=== PATIENT | female | born 1995 | race Two or more races ===

== ENCOUNTER 2017-03-01 13:11 | Inpatient (IN) | payer OTHER ==
[2017-03-01] MEDS ORDERED: ACETYLCYSTEINE IVPB ONE ×3 (13:30→19:30)
[2017-03-01] MEDS ORDERED: D5W IVPB ONE ×3 (13:30→19:30)
[2017-03-01 13:33] LABS: Hematocrit 42 % (35-47); Hemoglobin 14.3 g/dl (12.0-16.0); Mean Corpuscular HGB Conc 34 g/dl (31-36); Mean Corpuscular Hemoglobin 30 pg (27-31); Mean Corpuscular Volume 88 fL (80-97); Mean Platelet Volume 8 um3 (7.4-10.4); Red Blood Count 4.72 10^6/ul (4.0-5.4); Red Cell Distribution Width 13 % (10.5-15); White Blood Count 5.4 10^3/ul (3.5-10.8)
[2017-03-01 13:44] LABS: ALT 11 U/L (7-52); AST 24 U/L (13-39); Albumin 4.9 g/dL (3.2-5.2); Alkaline Phosphatase 49 U/L (34-104); Anion Gap 9 mmol/L (2-11); BUN/Creatinine Ratio 13.8 (8-20); Blood Urea Nitrogen 13 mg/dL (6-24); CO2 Carbon Dioxide 24 mmol/L (22-32); Calcium 9.7 mg/dL (8.6-10.3); Chloride 101 mmol/L (101-111); EGFR African American 97.6 (>60); EGFR Non-African American 75.9 (>60); Globulin 3.3 g/dL (2-4); Glucose 86 mg/dL (70-100); Potassium 3.3 mmol/L (3.5-5.0); Sodium 134 mmol/L (133-145); Total Protein 8.2 g/dL (6.4-8.9)
[2017-03-01 14:05] LABS: Alcohol < 10 mg/dL (<10); Salicylate < 2.50 mg/dL (<30)
[2017-03-01 14:10] LABS: Acetaminophen 167 mcg/mL
[2017-03-01 16:05] LABS: Benzodiazepine Urine Screen None Detected (None Detect)
--- NOTE | 2017-03-01 16:22 | ED ---
Santhosh Nicholson Nikita, scribed for Hussain Mccurdy MD on 03/01/17 at 1412 . Substance Abuse/Use - HPI Summary HPI Summary: This patient is a 21 year old F BIBA to ED with a chief complaint of OD on Tylenol since 0700. Pt told her friend (who called the police) that she took 48 pills of 500mg of Tylenol intentionally. EMS found her with two empty bottles and 1 unopened bottle of Tylenol. The pt rates the pain 0/10 in severity. Symptoms aggravated by nothing. Symptoms alleviated by nothing. Patient reports she caused pain for her family and friends who distanced themselves from her because of it. She reports that she had a bad situation overall last semester . Per EMS, pt broke up with her boyfriend about 2-3 months ago. She wants to get back at her boyfriend. Per the nurse, she caused self-harm on her wrists. - History Of Current Complaint Chief Complaint: EDOverdose Stated Complaint: 941 Time Seen by Provider: 03/01/17 13:14 Hx Obtained From: Patient Onset/Duration of Drug/ETOH Abuse: Hours - 0700 Ingestion History: Type/Name Of Drug - Tylenol, Amount Ingested - 48 pills 500 mg, Approximate Time Of Ingestion - 07 Overdose Characteristics: Oral Timing Of Abuse: Binge Use Aggravating Factor(s): Nothing Alleviating Factor(s): Nothing Associated Signs And Symptoms: Other: - Patient reports she caused pain for her family and friends who distanced themselves from her because of it. She reports that she had a bad situation overall last semester. Per the nurse, she caused self-harm on her wrists. Related Hx: Suicidal: Prior Attempt(s) - Self-harm at wrists - Allergies/Home Medications Allergies/Adverse Reactions: Allergies Allergy/AdvReac Type Severity Reaction Status Date / Time No Known Drug Allergy Allergy Unknown Verified 03/01/17 13:25 Reaction Details PMH/Surg Hx/FS Hx/Imm Hx Endocrine/Hematology History: Denies: Hx Diabetes Cardiovascular History: Denies: Hx Coronary Artery Disease, Hx Hypertension Infectious Disease History: No Infectious Disease History: Denies: Traveled Outside the [place] in Last 30 Days - Family History Known Family History: Negative: Cardiac Disease, Hypertension, Diabetes - Social History Occupation: Student Alcohol Use: None Hx Substance Use: No Hx Tobacco Use: No Review of Systems Negative: Fever Positive: Other - Substance abuse. Patient reports she caused pain for her family and friends who distanced themselves from her because of it. She reports that she had a bad situation overall last semester. Per the nurse, she caused self-harm on her wrists. All Other Systems Reviewed And Are Negative: Yes Physical Exam Triage Information Reviewed: Yes Vital Signs On Initial Exam: Initial Vitals Temp Pulse Resp Pulse Ox 98.3 F 127 20 100 03/01/17 13:11 03/01/17 13:11 03/01/17 13:11 03/01/17 13:11 Vital Signs Reviewed: Yes Appearance: Positive: Well-Appearing, No Pain Distress Skin: Positive: Warm, Skin Color Reflects Adequate Perfusion, Dry Head/Face: Positive: Normal Head/Face Inspection Eyes: Positive: Normal ENT: Positive: Normal ENT inspection Neck: Positive: Supple, Nontender Respiratory/Lung Sounds: Positive: Clear to Auscultation, Breath Sounds Present Cardiovascular: Positive: RRR Abdomen Description: Positive: Nontender, Soft Bowel Sounds: Positive: Present Musculoskeletal: Positive: Normal Neurological: Positive: Normal, Sensory/Motor Intact, Alert, Oriented to Person Place, Time, CN Intact II-III Psychiatric: Positive: Affect/Mood Appropriate Diagnostics - Vital Signs Vital Signs Temp Pulse Resp BP Pulse Ox 03/01/17 13:14 98.3 F 124 18 135/96 98 03/01/17 13:11 98.3 F 127 20 100 - Laboratory Lab Results: Lab Results 03/01/17 03/01/17 03/01/17 Range/Units 13:10 13:10 13:10 WBC 5.4 (3.5-10.8) 10^3/ul RBC 4.72 (4.0-5.4) 10^6/ul Hgb 14.3 (12.0-16.0) g/dl Hct 42 (35-47) % MCV 88 (80-97) fL MCH 30 (27-31) pg MCHC 34 (31-36) g/dl RDW 13 (10.5-15) % Plt Count 229 (150-450) 10^3/ul MPV 8 (7.4-10.4) um3 Neut % (Auto) 58.0 (38-83) % Lymph % (Auto) 34.0 (25-47) % [place] % (Auto) 6.7 (1-9) % Eos % (Auto) 0.5 (0-6) % Baso % (Auto) 0.8 (0-2) % Absolute Neuts (auto) 3.1 (1.5-7.7) 10^3/ul Absolute Lymphs (auto) 1.8 (1.0-4.8) 10^3/ul Absolute Monos (auto) 0.4 (0-0.8) 10^3/ul Absolute Eos (auto) 0 (0-0.6) 10^3/ul Absolute Basos (auto) 0 (0-0.2) 10^3/ul Absolute Nucleated RBC 0 10^3/ul Nucleated RBC % 0 Sodium 134 (133-145) mmol/L Potassium 3.3 L (3.5-5.0) mmol/L Chloride 101 (101-111) mmol/L Carbon Dioxide 24 (22-32) mmol/L Anion Gap 9 (2-11) mmol/L BUN 13 (6-24) mg/dL Creatinine 0.94 (0.51-0.95) mg/dL Est GFR ( Amer) 97.6 (>60) Est GFR (Non-Af Amer) 75.9 (>60) BUN/Creatinine Ratio 13.8 (8-20) Glucose 86 (70-100) mg/dL Lactic Acid 1.9 (0.5-2.0) mmol/L Calcium 9.7 (8.6-10.3) mg/dL Total Bilirubin 0.70 (0.2-1.0) mg/dL AST 24 (13-39) U/L ALT 11 (7-52) U/L Alkaline Phosphatase 49 (34-104) U/L Total Protein 8.2 (6.4-8.9) g/dL Albumin 4.9 (3.2-5.2) g/dL Globulin 3.3 (2-4) g/dL Albumin/Globulin Ratio 1.5 (1-3) Beta HCG, Quant < 0.60 mIU/mL Salicylates < 2.50 (<30) mg/dL Acetaminophen 167 H* mcg/mL Serum Alcohol < 10 (<10) mg/dL Result Diagrams: 03/01/17 13:10 03/01/17 13:10 Lab Statement: Any lab studies that have been ordered have been reviewed, and results considered in the medical decision making process. - EKG 1311 Cardiac Rate: Tachycardia - 126 bpm EKG Rhythm: Sinus Rhythm ST Segment: Non-Specific - Non-specific changes Course/Dx - Course Course Of Treatment: Ms. Bourne was brougth in having told a friend that she took an OD of medicine. The friend called the police and she was brought in. She gave varying accounts of when she took th medicine (she told me 0700) but was very consistent on what. She reported taking 48 tabs of 500mgs aceetaminophen and 25mgs diphenhydramine. This is a toxic dose of both and she was given acetadose IV and monitored. He tylenol level was 1676 which is treatable unless she took the medicine immediately before the police were called. She is admitted to the ICU. - Diagnoses Provider Diagnoses: Overdose by acetaminophen, Overdose or poisoning by antihistamine or antiemetic drug - Physician Notifications Discussed Care Of Patient With: Shanae Love Time Discussed With Above Provider: 14:30 Instructed by Provider To: Other - Consulted with Dr. Love (hospitalist) who agrees to admit pt. - Critical Care Time Critical Care Time: 30-74 min Discharge - Discharge Plan Condition: Stable Disposition: ADMITTED TO [facility] The documentation as recorded by the Santhosh elliott Nikita accurately reflects the service I personally performed and the decisions made by me, Hussain Mccurdy MD.
[2017-03-01 16:28] LABS: Urine Bacteria Absent (Absent); Urine Bilirubin Negative (Negative); Urine Glucose Negative (Negative); Urine Nitrite Negative (Negative)
[2017-03-01] MEDS: Potassium Chlor TAB* 20 MEQ TAB.ER PO ONE ×2 (17:28→17:32)
[2017-03-01] MEDS: NS 0.9% 1000 ML* 1,000 ML IV SCH ×2 (17:28→17:32)
[2017-03-01] MEDS: LORazepam INJ* 2 MG/ML 1 ML VIAL IV PUSH PRN (19:33)
--- NOTE | 2017-03-01 19:34 | HP ---
HISTORY AND PHYSICAL: DATE OF ADMISSION: 03/01/17 PRIMARY CARE PROVIDER: Unknown. ATTENDING PHYSICIAN WHILE IN THE HOSPITAL: Dr. Schaeffer * (Report dictated by Jagjit Beach NP) CHIEF COMPLAINT: 1. Suicidal ideation. 2. Overdose. HISTORY OF PRESENT ILLNESS: Ms. Bourne is a 21-year-old female patient presumably healthy. There is a question if she has a psychiatric issue. She does state she has been cutting for some time and she is really not forthright with her history. She does state that her boyfriend broke up she told me 2 weeks ago and she told the paramedics 2 months ago. She does state that they broke up and since then has been feeling very depressed, very sad. She has been trying to think the ways to hurt him and she felt that her taking her own life would harm him. So today, she took 2 bottles, each bottle having 24 pills of Tylenol PM 500 mg per tablet of Tylenol, 25 mg per tablet of Benadryl. She took both of these today at around 8:30 or 9 o'clock in the morning and presented to the emergency department after [facility] was contacted. She again did admit to having self-harm in the past. She was evaluated in the ED and Acetadote was started and Poison Control was contacted and her Tylenol level was noted to be at 167. Because of this, the hospitalist service was asked to evaluate for admission. U-tox is pending. PAST MEDICAL HISTORY: Denied. PAST SURGICAL HISTORY: Denied. MEDICATIONS: The home meds were denied. ALLERGIES TO MEDICATIONS: No known drug allergies. FAMILY HISTORY: Father had cancer. Mother's history is reviewed, it sounds like she is healthy. SOCIAL HISTORY: She does not smoke. She drinks occasionally. She does not appoint a surrogate decision maker at this point. REVIEW OF SYSTEMS: There is no documented fever. Denied any significant weight change. There was no double vision. There is no ear discharge. No rhinorrhea, no sore throat. No thyroid enlargement. Denied having any chest pain. There is no orthopnea. No nocturnal dyspnea. There was no abdominal pain. No nausea, no vomiting, no dysuria, no frequency. No seizure. There is no loss of consciousness, no pruritus, and no skin ulcerations. Review of 14 systems completed, all others negative. PHYSICAL EXAMINATION GENERAL: At this time, Ms. Bourne is a 21-year-old female patient. She appears to be well nourished, well developed, does not appear to be in acute distress. VITAL SIGNS: Blood pressure 128/87, pulse 123, respirations 21, O2 sat 100%, and her temperature was 98.3. HEENT: Head is atraumatic and normocephalic. Eyes: EOMs are intact. Sclerae are anicteric and not pale. Throat: Oral mucosa appears to be moist. No oropharyngeal erythema. NECK: Supple. LUNGS: Clear to auscultation bilaterally. No wheezes, rales, or rhonchi. HEART: Sounds S1 and S2. She is tachycardic. ABDOMEN: Soft, flat, and nontender. Bowel sounds are present. EXTREMITIES: Pulses were 2+ throughout. She is able to move all 4 extremities with 5/5 strength. NEUROLOGIC: She is drowsy. She is awake. She is alert to place, time, and self. Music Video Producer equal. Tongue midline. No gross focal deficits. Pupils were dilated. SKIN: Intact. DIAGNOSTIC STUDIES/LAB DATA: The labs revealed a WBC of 5.4, RBC of 4.7, hemoglobin of 14.2, hematocrit of 42, platelet count of 229. Sodium is 134, potassium 3.3, chloride of 101, bicarb 24, BUN 13, creatinine 0.94, glucose 86. Lactate 1.9. Calcium 9.7. Total bili 0.7, AST 24, ALT 11, alk phos 49. Albumin 4.9. Beta-hCG was less than 0.6. Salicylates were negative. Serum alcohol was negative. Tylenol level was 167. She did have an EKG obtained today that showed sinus tachycardia, QTC was 388, no ST elevations or T-wave inversions were noted. Old medical records were reviewed. ASSESSMENT AND PLAN: Ms. Bourne is a 21-year-old female patient coming in to the ER today with suicidal ideation, now with intentional overdose in the form of Tylenol and Benadryl. We are asked to evaluate for admission. She will be admitted under inpatient status for: 1. Tylenol overdose and suicidal ideation. At this point, we touch base with Poison Control. We will plan to check her levels again 2 hours prior to the finish of her last acetylcysteine bag at the 14-hour vanessa, which would be right around 8 o'clock in the morning, we will check her CMP, INR and Tylenol level. If the Tylenol does remain elevated, they did recommend continuing her acetylcysteine 16- hour bag again. I did place a psychiatric consult as well as she is suicidal, we will put her on suicide precautions and we will follow her levels closely. 2. DVT prophylaxis. She will be placed on SCDs for time being. 3. Fluids, electrolytes, and nutrition: She can have a regular diet. 4. Code status. Full code. TIME SPENT: On admission 60 minutes, greater than half of the time spent face- to- face with the patient obtaining my history and physical, the other half time was spent going over the plan of care with the patient and implementing plan of care. I did discuss the plan of care with my attending, Dr. Schaeffer, she is in agreement. JAGJIT BEACH, RYAN [id number]/CPS #: [id number] KHADAR
[2017-03-02] MEDS: NS 0.9% 1000 ML* 1,000 ML IV SCH ×2 (00:04→06:46)
--- NOTE | 2017-03-02 09:48 | PN ---
Progress Note - Progress Note Date of Service: 03/02/17 Note: CRITICAL CARE MEDICINE Date: 03/02/17 Time: 950 SUBJECTIVE: Patient seen and examined. PHYSICAL EXAM: not wanting to converse much Vital Signs: Reviewed. Neurologic: awake, mild lethagry; nonfocal HEENT: pupils equal. Sclera anicteric. Trachea midline. Cardiovascular: S1 S2 Respiratory: clear Abdomen: Soft, nt. No r/g/r. Extremities: Warm. LABS: Reviewed. IMAGING: Reviewed. MEDICATIONS: Reviewed. ASSESSMENT: 21 F Intentional acetaminophen + benadryl overdose Suicidal attempt Major depression PLAN: improving. adequate clearance. on NAC but given apap level of 43 would continue another 16h course of NAC to error on safe side labs otherwise mostly ok, other then touch of acid and low K. adjust fluids to LR and avoid hyperCl. Po intake encouraged Still drowsy post benadryl and depression affects evident. F/u for any bladder complaints due to urinary retention as could require straight cath if it becomes a burden. can transfer to floor with 1:1 with psych eval and consider pysch inpt needs for tomorrow with expected medical clearance then. Holding her klonipin and effexor until tomorrow or per psych. Disposition: medical and likely pysch needs tomorrow Code Status: Full Critical Care Time: 25min Krista Lan DO
[2017-03-02 09:55] LABS: Hematocrit 37 % (35-47); Hemoglobin 12.5 g/dl (12.0-16.0); Mean Corpuscular HGB Conc 33 g/dl (31-36); Mean Corpuscular Hemoglobin 30 pg (27-31); Mean Corpuscular Volume 89 fL (80-97); Mean Platelet Volume 8 um3 (7.4-10.4); Red Cell Distribution Width 13 % (10.5-15); White Blood Count 7.3 10^3/ul (3.5-10.8)
[2017-03-02 10:07] LABS: Albumin 3.3 g/dL (3.2-5.2); BUN/Creatinine Ratio 4.1 (8-20); Calcium 8.1 mg/dL (8.6-10.3); EGFR African American 130.7 (>60); EGFR Non-African American 101.6 (>60); Globulin 2.5 g/dL (2-4); Potassium 3.4 mmol/L (3.5-5.0); Total Bilirubin 0.6 mg/dL (0.2-1.0); Total Protein 5.8 g/dL (6.4-8.9)
[2017-03-02] MEDS ORDERED: D5W IVPB ONE (12:00)
[2017-03-02] MEDS ORDERED: ACETYLCYSTEINE IVPB ONE (12:00)
[2017-03-03 02:22] LABS: Acetaminophen < 15 mcg/mL
[2017-03-03 02:23] LABS: ALT 7 U/L (7-52); AST 14 U/L (13-39); Albumin 3.1 g/dL (3.2-5.2); Alkaline Phosphatase 29 U/L (34-104); Anion Gap 4 mmol/L (2-11); BUN/Creatinine Ratio 2.7 (8-20); Blood Urea Nitrogen 2 mg/dL (6-24); CO2 Carbon Dioxide 21 mmol/L (22-32); Calcium 8.3 mg/dL (8.6-10.3); Chloride 111 mmol/L (101-111); EGFR African American 130.7 (>60); EGFR Non-African American 101.6 (>60); Globulin 2.2 g/dL (2-4); Glucose 80 mg/dL (70-100); Indirect Bilirubin 0.4 mg/dL (0.3-1.0); Magnesium 1.7 mg/dL (1.9-2.7); Potassium 3.7 mmol/L (3.5-5.0); Sodium 136 mmol/L (133-145); Total Protein 5.3 g/dL (6.4-8.9)
--- NOTE | 2017-03-03 13:57 | PN ---
Subjective Date of Service: 03/03/17 Interval History: Ms. Bourne feels okay this morning, but is tearful. She denies more thoughts of SI and says she is looking for reasons to "go on" like her parents and her cats. She denies headache, blurry vision, nausea, vomiting, diarrhea, or trouble urinating. Family History: Unchanged from Admission Social History: Unchanged from Admission Past Medical History: Unchanged from Admission Objective Active Medications: Potassium Chloride 20 meq/ (Lactated Ringer's) 1,010 mls @ 101 mls/hr IVPB Q10H RIGO Stop: 03/03/17 16:59 Last Admin: 03/03/17 09:12 Dose: 101 mls/hr Lorazepam (Ativan Inj*) 1 mg IV PUSH Q6H PRN PRN Reason: ANXIETY Last Admin: 03/01/17 19:33 Dose: 1 mg Vital Signs 03/02/17 03/02/17 03/02/17 14:00 15:00 16:00 Temperature Pulse Rate 95 85 77 Respiratory 18 22 12 Rate Blood Pressure 117/75 117/85 134/95 (mmHg) O2 Sat by Pulse 95 97 97 Oximetry 03/02/17 03/02/17 03/02/17 17:00 18:00 19:00 Temperature 99.9 F Pulse Rate 89 81 88 Respiratory 26 15 17 Rate Blood Pressure 131/90 121/89 (mmHg) O2 Sat by Pulse 97 97 97 Oximetry 03/02/17 03/02/17 03/02/17 20:00 20:15 21:00 Temperature Pulse Rate 79 73 Respiratory 20 15 22 Rate Blood Pressure 125/82 (mmHg) O2 Sat by Pulse 98 96 Oximetry 03/02/17 03/02/17 03/02/17 22:00 23:00 23:19 Temperature Pulse Rate 72 85 72 Respiratory 17 20 17 Rate Blood Pressure (mmHg) O2 Sat by Pulse 96 97 96 Oximetry 03/03/17 03/03/17 03/03/17 00:00 01:00 02:00 Temperature 99.4 F Pulse Rate 73 79 75 Respiratory 17 17 18 Rate Blood Pressure (mmHg) O2 Sat by Pulse 96 97 97 Oximetry 03/03/17 03/03/17 03/03/17 03:00 03:53 03:54 Temperature 99.9 F Pulse Rate 69 68 Respiratory 18 22 Rate Blood Pressure 122/82 (mmHg) O2 Sat by Pulse 96 97 Oximetry 03/03/17 03/03/17 03/03/17 04:00 05:00 06:02 Temperature 98.4 F Pulse Rate 74 78 78 Respiratory 22 21 14 Rate Blood Pressure 131/76 (mmHg) O2 Sat by Pulse 97 97 100 Oximetry 03/03/17 03/03/17 03/03/17 07:26 08:00 11:28 Temperature 99.1 F 98.5 F Pulse Rate 81 96 Respiratory 18 18 18 Rate Blood Pressure 131/74 119/73 (mmHg) O2 Sat by Pulse 99 99 Oximetry Oxygen Devices in Use Now: None Appearance: resting in bed, no distress, thin, tearful Eyes: No Scleral Icterus, PERRLA Ears/Nose/Mouth/Throat: NL Teeth, Lips, Gums, Clear Oropharnyx Neck: NL Appearance and Movements; NL JVP, Trachea Midline Respiratory: Symmetrical Chest Expansion and Respiratory Effort, Clear to Auscultation Cardiovascular: NL Sounds; No Murmurs; No JVD, RRR Abdominal: NL Sounds; No Tenderness; No Distention, No Hepatosplenomegaly Lymphatic: No Cervical Adenopathy, No Axillary Adenopathy Extremities: No Edema Skin: No Rash or Ulcers Neurological: Alert and Oriented x 3 Result Diagrams: 03/02/17 09:05 03/03/17 01:55 Additional Lab and Data: Lab Results 03/01/17 03/01/17 03/01/17 Range/Units 13:10 13:10 13:10 WBC 5.4 (3.5-10.8) 10^3/ul RBC 4.72 (4.0-5.4) 10^6/ul Hgb 14.3 (12.0-16.0) g/dl Hct 42 (35-47) % MCV 88 (80-97) fL MCH 30 (27-31) pg MCHC 34 (31-36) g/dl RDW 13 (10.5-15) % Plt Count 229 (150-450) 10^3/ul MPV 8 (7.4-10.4) um3 Neut % (Auto) 58.0 (38-83) % Lymph % (Auto) 34.0 (25-47) % [place] % (Auto) 6.7 (1-9) % Eos % (Auto) 0.5 (0-6) % Baso % (Auto) 0.8 (0-2) % Absolute Neuts (auto) 3.1 (1.5-7.7) 10^3/ul Absolute Lymphs (auto) 1.8 (1.0-4.8) 10^3/ul Absolute Monos (auto) 0.4 (0-0.8) 10^3/ul Absolute Eos (auto) 0 (0-0.6) 10^3/ul Absolute Basos (auto) 0 (0-0.2) 10^3/ul Absolute Nucleated RBC 0 10^3/ul Nucleated RBC % 0 Sodium 134 (133-145) mmol/L Potassium 3.3 L (3.5-5.0) mmol/L Chloride 101 (101-111) mmol/L Carbon Dioxide 24 (22-32) mmol/L Anion Gap 9 (2-11) mmol/L BUN 13 (6-24) mg/dL Creatinine 0.94 (0.51-0.95) mg/dL Est GFR ( Amer) 97.6 (>60) Est GFR (Non-Af Amer) 75.9 (>60) BUN/Creatinine Ratio 13.8 (8-20) Glucose 86 (70-100) mg/dL Lactic Acid 1.9 (0.5-2.0) mmol/L Calcium 9.7 (8.6-10.3) mg/dL Total Bilirubin 0.70 (0.2-1.0) mg/dL AST 24 (13-39) U/L ALT 11 (7-52) U/L Alkaline Phosphatase 49 (34-104) U/L Total Protein 8.2 (6.4-8.9) g/dL Albumin 4.9 (3.2-5.2) g/dL Globulin 3.3 (2-4) g/dL Albumin/Globulin Ratio 1.5 (1-3) Beta HCG, Quant < 0.60 mIU/mL Salicylates < 2.50 (<30) mg/dL Acetaminophen 167 H* mcg/mL Serum Alcohol < 10 (<10) mg/dL Microbiology and Other Data: Microbiology 03/01/17 14:40 Urine Culture - Final Urine 03/01/17 16:00 Nasal Screen MRSA (PCR)(IGNACIA) - Final Nasal Mrsa Negative Assess/Plan/Problems-Billing Assessment: 1. Intentional Acetaminophen Overdose Now approximately 48 hours after event; acetaminophen level now undetectable. She did receive N-acetylcysteine for approximately 24 hours. No evidence of liver damage at this time, but does have a mildly elevated INR. Awaiting Psych consult for disposition recommendations; may benefit from short term psych inpatient. 2. Intentional Diphenhydramine Overdose Monitor for anticholinergic side effects. 3. Major Depressive Disorder recently exacerbated by a break up. She does attend [facility] in [place] and expresses interest in continuing the program. Holding anti-depressants until evaluated by Psychiatry.
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
[2017-03-04] MEDS: LORazepam INJ* 2 MG/ML 1 ML VIAL IV PUSH PRN ×2 (03:36→13:07)
[2017-03-04 06:33] LABS: Albumin 3.3 g/dL (3.2-5.2); BUN/Creatinine Ratio 7.5 (8-20); Calcium 8.5 mg/dL (8.6-10.3); EGFR African American 144.3 (>60); EGFR Non-African American 112.2 (>60); Globulin 2.4 g/dL (2-4); Potassium 3.7 mmol/L (3.5-5.0); Total Bilirubin 0.2 mg/dL (0.2-1.0); Total Protein 5.7 g/dL (6.4-8.9)
[2017-03-04 08:42] VITALS: BP 121/79
--- NOTE | 2017-03-04 13:34 | CONSULT ---
Identification - Patient Identification Reason for Psychiatric Consultation: Suicidal Ideation -: Patient is a 21 year old, F admitted on 03/01/17. - MHU Identification Employment Status: Student Hx Psychiatric Hospitalization: Yes History - Objective HPI: The patient remains depressed and tearful, although she denies SI and expresses a desire to be discharged from the hospital so that she can return to [place] with her family, agreeing to resume partial hospitalization through the [facility] in [place], [place]. Her father, Tony Bourne is supportive of her release, stating that the family is rallying support to provide Esther with more- or-less 24 hour supervision in the home setting. I was able to gather further collateral information from the patient's primary therapist, Cynthia Dugan [phone]), who has been working with her at [facility] since her discharge from inpatient psychiatric treatment at [facility] in mid-January of this year. She describes the patient as highly impulsive and that this trip to [place] to visit friends was considered a "test run" to see if she could handle a lower level of supervision in the community. Given the severity of Esther's overdose, and the fact that partial hospitalization is only a 5day/week program, Ms. Dugan expresses her preference that the patient receive inpatient stabilization on our [facility] prior to returning to their care. Esther and her father are later notified of this, and, although disappointed, accept the situation for what it is and do not overly protest a BSU admission. Lab Results: Laboratory Tests 03/01/17 03/01/17 03/02/17 14:40 14:40 09:05 WBC RBC Hgb Hct MCV MCH MCHC RDW Plt Count MPV Neut % (Auto) Lymph % (Auto) Rogers % (Auto) Eos % (Auto) Baso % (Auto) Absolute Neuts (auto) Absolute Lymphs (auto) Absolute Monos (auto) Absolute Eos (auto) Absolute Basos (auto) Absolute Nucleated RBC Nucleated RBC % INR (Anticoag Therapy) Sodium 134 Potassium 3.4 L Chloride 109 Carbon Dioxide 19 L Anion Gap 6 BUN 3 L Creatinine 0.73 Est GFR ( Amer) 130.7 Est GFR (Non-Af Amer) 101.6 BUN/Creatinine Ratio 4.1 L Glucose 83 Calcium 8.1 L Phosphorus Magnesium Total Bilirubin 0.60 Direct Bilirubin Indirect Bilirubin AST 16 ALT 7 Alkaline Phosphatase 32 L Total Creatine Kinase Total Protein 5.8 L Albumin 3.3 Globulin 2.5 Albumin/Globulin Ratio 1.3 Urine Color Yellow Urine Appearance Cloudy Urine pH 6.0 Ur Specific Republic 1.010 Urine Protein Negative Urine Ketones 1+ H Urine Blood Negative Urine Nitrate Negative Urine Bilirubin Negative Urine Urobilinogen Negative Ur Leukocyte Esterase 1+ H Urine WBC (Auto) Absent Urine RBC (Auto) Absent Ur Squamous Epith Cells Present H Urine Bacteria Absent Urine Glucose Negative Urine Opiates Screen None detected Acetaminophen 43 Ur Barbiturates Screen None detected Ur Phencyclidine Scrn None detected Ur Amphetamines Screen None detected U Benzodiazepines Scrn None detected Urine Cocaine Screen None detected U Cannabinoids Screen None detected 03/02/17 03/02/17 03/02/17 09:05 09:05 09:05 WBC 7.3 RBC 4.20 Hgb 12.5 Hct 37 MCV 89 MCH 30 MCHC 33 RDW 13 Plt Count 201 MPV 8 Neut % (Auto) 69.4 Lymph % (Auto) 23.8 L Rogers % (Auto) 5.3 Eos % (Auto) 1.1 Baso % (Auto) 0.4 Absolute Neuts (auto) 5.1 Absolute Lymphs (auto) 1.7 Absolute Monos (auto) 0.4 Absolute Eos (auto) 0.1 Absolute Basos (auto) 0 Absolute Nucleated RBC 0 Nucleated RBC % 0.1 INR (Anticoag Therapy) 1.25 H Sodium Potassium Chloride Carbon Dioxide Anion Gap BUN Creatinine Est GFR ( Amer) Est GFR (Non-Af Amer) BUN/Creatinine Ratio Glucose Calcium Phosphorus Magnesium Total Bilirubin Direct Bilirubin Indirect Bilirubin AST ALT Alkaline Phosphatase Total Creatine Kinase 76 Total Protein Albumin Globulin Albumin/Globulin Ratio Urine Color Urine Appearance Urine pH Ur Specific Republic Urine Protein Urine Ketones Urine Blood Urine Nitrate Urine Bilirubin Urine Urobilinogen Ur Leukocyte Esterase Urine WBC (Auto) Urine RBC (Auto) Ur Squamous Epith Cells Urine Bacteria Urine Glucose Urine Opiates Screen Acetaminophen Ur Barbiturates Screen Ur Phencyclidine Scrn Ur Amphetamines Screen U Benzodiazepines Scrn Urine Cocaine Screen U Cannabinoids Screen 03/03/17 03/03/17 03/04/17 01:55 01:55 05:46 WBC RBC Hgb Hct MCV MCH MCHC RDW Plt Count MPV Neut % (Auto) Lymph % (Auto) Rogers % (Auto) Eos % (Auto) Baso % (Auto) Absolute Neuts (auto) Absolute Lymphs (auto) Absolute Monos (auto) Absolute Eos (auto) Absolute Basos (auto) Absolute Nucleated RBC Nucleated RBC % INR (Anticoag Therapy) 1.37 H 0.98 Sodium 136 Potassium 3.7 Chloride 111 Carbon Dioxide 21 L Anion Gap 4 BUN 2 L Creatinine 0.73 Est GFR ( Amer) 130.7 Est GFR (Non-Af Amer) 101.6 BUN/Creatinine Ratio 2.7 L Glucose 80 Calcium 8.3 L Phosphorus 2.0 L Magnesium 1.7 L Total Bilirubin 0.50 Direct Bilirubin 0.10 Indirect Bilirubin 0.4 AST 14 ALT 7 Alkaline Phosphatase 29 L Total Creatine Kinase Total Protein 5.3 L Albumin 3.1 L Globulin 2.2 Albumin/Globulin Ratio 1.4 Urine Color Urine Appearance Urine pH Ur Specific Republic Urine Protein Urine Ketones Urine Blood Urine Nitrate Urine Bilirubin Urine Urobilinogen Ur Leukocyte Esterase Urine WBC (Auto) Urine RBC (Auto) Ur Squamous Epith Cells Urine Bacteria Urine Glucose Urine Opiates Screen Acetaminophen < 15 Ur Barbiturates Screen Ur Phencyclidine Scrn Ur Amphetamines Screen U Benzodiazepines Scrn Urine Cocaine Screen U Cannabinoids Screen 03/04/17 05:46 WBC RBC Hgb Hct MCV MCH MCHC RDW Plt Count MPV Neut % (Auto) Lymph % (Auto) Rogers % (Auto) Eos % (Auto) Baso % (Auto) Absolute Neuts (auto) Absolute Lymphs (auto) Absolute Monos (auto) Absolute Eos (auto) Absolute Basos (auto) Absolute Nucleated RBC Nucleated RBC % INR (Anticoag Therapy) Sodium 140 Potassium 3.7 Chloride 109 Carbon Dioxide 26 Anion Gap 5 BUN 5 L Creatinine 0.67 Est GFR ( Amer) 144.3 Est GFR (Non-Af Amer) 112.2 BUN/Creatinine Ratio 7.5 L Glucose 90 Calcium 8.5 L Phosphorus Magnesium Total Bilirubin 0.20 Direct Bilirubin Indirect Bilirubin AST 15 ALT 7 Alkaline Phosphatase 37 Total Creatine Kinase Total Protein 5.7 L Albumin 3.3 Globulin 2.4 Albumin/Globulin Ratio 1.4 Urine Color Urine Appearance Urine pH Ur Specific Republic Urine Protein Urine Ketones Urine Blood Urine Nitrate Urine Bilirubin Urine Urobilinogen Ur Leukocyte Esterase Urine WBC (Auto) Urine RBC (Auto) Ur Squamous Epith Cells Urine Bacteria Urine Glucose Urine Opiates Screen Acetaminophen Ur Barbiturates Screen Ur Phencyclidine Scrn Ur Amphetamines Screen U Benzodiazepines Scrn Urine Cocaine Screen U Cannabinoids Screen Exam Appearance: Thin Framed Hygiene: Normal Grooming: Well Kept Psychomotor Activities: Abnormal-Decreased Exhibits Abnormal Movement: No Attitude and Relatedness: Withdrawn Eye Contact: Fair - Speech Quality: Unpressured Latencies: Normal Quantity: Terse Patient's Decription of Mood: "Sad" Observed Affect: Tearful Affect Consistent with: Dysphoria Patient's Thought Process: Coherent Thought Content: No Passive Wish, No Suicidal Planning, No Homicidal Ideation, No Paranoid Ideation Experiencing Hallucinations: No, Sensorium is Clear Type of Hallucinations: Visual: No, Auditory: No, Command: No Level of Consciousness: Lethargic Orientation: Yes Intact, Yes Orientated to Time, Yes Orientated to Place, Yes Orientated to Person Impulse Control: Tenuous Insight and Judgement: Impaired Impression - Impression Clinical Impression: 21 y.o. 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 She remains depressed and tearful. Inpatient DSM-IV Dx: MDD, single episode, severe without psychotic features Merits Inpatient Hospitalization: Yes Problem List - MHU Problems Type of Problem: Mood Status of Problem: Active Plan - Treatment Plan Treatment Plan: Recommend that patient be transferred to BSU on involuntary, 9.39 paperwork for further psychiatric stabilization. Please resume venlafaxine XR 150mg PO qday and clonazepam 0.5mg PO qhs. Dr. Isak Madrid is the accepting psychiatrist. Thank you for taking care of Ms. Bourne. Continued Medication Management: Continue Outpt Medication Medications: Current Medications Clonazepam (Klonopin Tab(*)) 0.5 mg PO BEDTIME RIGO Lorazepam (Ativan Inj*) 1 mg IV PUSH Q6H PRN PRN Reason: ANXIETY Last Admin: 03/04/17 13:07 Dose: 1 mg Venlafaxine HCl (Effexor Xr Cap*) 150 mg PO DAILY RIGO - Discharge Plan Discharge Plan: Inpatient Hospitalization
--- NOTE | 2017-03-04 17:34 | DS ---
Date of Admission: 03/01/17 Date of Discharge: 03/04/17 Principal Diagnosis: Acetaminophen and Diphenhydramine Overdose with Suicidal Intent Secondary Diagnosis: Major Depression Disposition: Inpatient Psychiatry Discharge Meds: Effexor 150mg nightly Klonipin 0.5mg BID discharge physical exam: General: thin, tearful, flat affect HEENT: no jaundice, PERRL, no nystagmus Neck: No lymphadenopathy, thyroid nonpalpable Chest: RRR, no murmurs, lungs clear b/l Abd: soft, nontender, nondistended, liver nonpalpable Ext: no edema, no cuts, no rashes or bruises Hospital Course by Problem: 1. Acetaminophen/Diphenhydramine Overdose with suicidal intent She was initially admitted to the ICU and started on N-acetylcysteine. Initial tylenol level was 167. She was continued on NAC for about 24 hours. The tylenol level decreased to 43, then to <15. She had a mild coagulopathy without bleeding, which resolved, and no evidence of hepatocellular injury. She had no anticholinergic side effects from the benadryl. She was evaluated by psychiatry, who spoke with her IOP in [place]. They collaborated on a disposition for Ms. Bourne, and determined she may be unsafe in an outpatient program, so it was ultimately decided that she should be admitted involuntarily to our inpatient psych unit. 2. Major Depression Effexor was resumed upon discharge
[2017-03-04] MEDS ORDERED: clonazePAM TAB(*) 0.5 MG PO SCH (21:00)
[2017-03-04] MEDS ORDERED: Venlafaxine EXT RELEASE CAP* 75 MG PO SCH (22:00)
== END 2017-03-04 16:00 | DRG 918 ==
LOC: ED 13:11 → ICU 14:32 → MED 03-03 05:37
PROVIDERS: ADMIT Internal Medicine; ATTEND Internal Medicine
DX: T39.1X2A Poisoning by 4-Aminophenol derivatives, intentional self-harm, initial encounter (principal); F32.2 Major depressive disorder, single episode, severe without psychotic features; D68.9 Coagulation defect, unspecified; T45.0X2A Poisoning by antiallergic and antiemetic drugs, intentional self-harm, initial encounter; Y92.009 Unspecified place in unspecified non-institutional (private) residence as the place of occurrence of the external cause; Z91.5 Personal history of self-harm; Z80.9 Family history of malignant neoplasm, unspecified
CPT/HCPCS: 36415; 80048; 80053; 80076; 80307; 80320; 80329; 81003; 81015; 82550; 83605; 83735; 84100; 84702; 85025; 85610; 87086; 87641; 93005; A9270-GY; G0480; J0132; J2060; J3480; J7060

== ENCOUNTER 2017-03-04 13:03 | Inpatient (IN) | payer OTHER ==
[2017-03-04] MEDS ORDERED: hydrOXYzine HCL TAB* 50 MG PO PRN (13:47)
[2017-03-04] MEDS: clonazePAM TAB(*) 0.5 MG PO SCH (20:45)
[2017-03-04] MEDS: Ibuprofen TAB* 400 MG PO PRN (20:46)
[2017-03-05] MEDS: Venlafaxine EXT RELEASE CAP* 75 MG PO SCH (10:13)
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
[2017-03-05] MEDS: clonazePAM TAB(*) 0.5 MG PO SCH (20:53)
[2017-03-06] MEDS: Venlafaxine EXT RELEASE CAP* 75 MG PO SCH (08:34)
--- NOTE | 2017-03-06 11:35 | PN ---
MHU: Group Therapy Note - Service Type Service Type: 17545 Group Psychotherapy - Cognitive Behavioral Group Therapy ( CBT):Patient was attentive and participatory in CBT programming this morning, and remained in good behavioral control. Patient expressed positive insights regarding relevant treatment interventions and goals.
--- NOTE | 2017-03-06 14:45 | PN ---
Subjective - Subjective Service Type: 16518 Hosp care 15 min low complexity Subjective: Patient calm and cooperative. Denies SI. Has several concerns that she would like to discuss with her parents in a family session on Thursday. Worried that she will not have the freedom to pursue her interests after returning home because of the need for close monitoring from her parents. Patient tolerating her medication well. Objective - Appearance Appearance: Thin Framed Dysmorphic Features: No Hygiene: Normal Grooming: Well Kept - Behavior Psychomotor Activities: Normal Exhibits Abnormal Movement: No - Attitude and Relatedness Attitude and Relatedness: Cooperative Eye Contact: Fair - Speech Quality: Unpressured Latencies: Normal Quantity: Appropriate - Mood Patient's Decription of Mood: "Sad" - Affect Observed Affect: Constricted Affect Consistent with: Dysphoria - Thought Process Patient's Thought Process: Coherent Thought Content: No Passive Wish, No Suicidal Planning, No Homicidal Ideation, No Paranoid Ideation - Sensorium Experiencing Hallucinations: No, Sensorium is Clear Type of Hallucinations: Visual: No, Auditory: No, Command: No - Level of Consciousness Level of Consciousness: Alert Orientation: Yes Intact, Yes Orientated to Time, Yes Orientated to Place, Yes Orientated to Person - Impulse Control Impulse Control: Tenuous - Insight and Judgement Insight and Judgement: Fair - Group Participation Particating in Group Activities: Yes - Medication Management Medication Management Adherence: Yes Assessment - Assessment Merits Inpatient Hospitalization: For Immediate Safety, For Stabilization Inpatient DSM-IV Dx: MDD single episode severe without psychotic features Clinical Impression: 21 y.o. single, [place]iqu[place] female [employer] undergraduate with a history of recent psychiatric hospitalization in [facility] secondary to passive SI who is transferred from the medical service following an intentional suicidal overdose of 2 bottles of Tylenol PM. Plan - Plan Treatment Plan: Name: SHANEL DUTTON Birthdate: 1995 [id number] Continued Medication Management: Continue Outpt Medication Medications: Current Medications Clonazepam (Klonopin Tab(*)) 0.5 mg PO BEDTIME [facility] Last Admin: 03/05/17 20:53 Dose: 0.5 mg Hydroxyzine HCl (Atarax Tab*) 50 mg PO Q6H PRN PRN Reason: AGITATION/ANXIETY/INSOMNIA Ibuprofen (Motrin Tab*) 400 mg PO Q6H PRN PRN Reason: PAIN Last Admin: 03/04/17 20:46 Dose: 400 mg Venlafaxine HCl (Effexor Xr Cap*) 150 mg PO DAILY [facility] Last Admin: 03/06/17 08:34 Dose: 150 mg - Discharge Plan Discharge Plan: Inpatient Hospitalization
[2017-03-06] MEDS: clonazePAM TAB(*) 0.5 MG PO SCH (20:14)
[2017-03-06] MEDS: Ibuprofen TAB* 400 MG PO PRN (20:16)
[2017-03-07] MEDS: Venlafaxine EXT RELEASE CAP* 75 MG PO SCH (08:18)
[2017-03-07] MEDS: clonazePAM TAB(*) 0.5 MG PO SCH (20:42)
[2017-03-08] MEDS: Venlafaxine EXT RELEASE CAP* 75 MG PO SCH (09:41)
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
[2017-03-08] MEDS: clonazePAM TAB(*) 0.5 MG PO SCH (21:38)
[2017-03-09] MEDS: Venlafaxine EXT RELEASE CAP* 75 MG PO SCH (09:09)
--- NOTE | 2017-03-09 13:04 | PN ---
MHU: Group Therapy Note - Service Type Service Type: 92445 Group Psychotherapy - Cognitive Behavioral Group Therapy ( CBT):Patient was attentive and participatory in CBT programming this morning, and remained in good behavioral control. Patient expressed positive insights regarding relevant treatment interventions and goals.
--- NOTE | 2017-03-09 15:31 | PN ---
Subjective - Subjective Service Type: 58714 Family Medical Psyc Subjective: The patient is seen for family meeting along with her parents and SW Benita Santhosh. We discuss safety planning and the family agrees to restrict access to medications, knives and other implements of possible self-harm. They deny possession of a firearm. Patient shows good insight into issues of power and control that are sensitive triggers for her. Family shows supportive and reliable stance. They are in agreement with treatment plan to target tomorrow for discharge back to [facility] where she can follow up at [facility]. Patient continues to deny SI. She is tolerating her medications well. Objective - Appearance Appearance: Well Developed/Nourished Dysmorphic Features: No Hygiene: Normal Grooming: Well Kept - Behavior Psychomotor Activities: Normal Exhibits Abnormal Movement: No - Attitude and Relatedness Attitude and Relatedness: Cooperative Eye Contact: Fair - Speech Quality: Unpressured Latencies: Normal Quantity: Appropriate - Mood Patient's Decription of Mood: "Okay" - Affect Observed Affect: Fair Affect Consistent with: Euthymia - Thought Process Patient's Thought Process: Coherent Thought Content: No Passive Wish, No Suicidal Planning, No Homicidal Ideation, No Paranoid Ideation - Sensorium Experiencing Hallucinations: No, Sensorium is Clear Type of Hallucinations: Visual: No, Auditory: No, Command: No - Level of Consciousness Level of Consciousness: Alert Orientation: Yes Intact, Yes Orientated to Time, Yes Orientated to Place, Yes Orientated to Person - Impulse Control Impulse Control: Intact - Insight and Judgement Insight and Judgement: Good - Group Participation Particating in Group Activities: Yes - Medication Management Medication Management Adherence: Yes Assessment - Assessment Merits Inpatient Hospitalization: Consolidate Improvements, Pending Safe DC Plan Inpatient DSM-IV Dx: MDD single episode severe without psychotic features Clinical Impression: 21 y.o. 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 Plan - Plan Treatment Plan: Name: SHANEL DUTTON Birthdate: 1995 [id number] Continue venlafaxine XR 150mg PO qam and clonazepam 0.5mg PO qhs. D/C tomorrow to home. Continued Medication Management: Continue Outpt Medication Medications: Current Medications Clonazepam (Klonopin Tab(*)) 0.5 mg PO BEDTIME [facility] Last Admin: 03/08/17 21:38 Dose: 0.5 mg Hydroxyzine HCl (Atarax Tab*) 50 mg PO Q6H PRN PRN Reason: AGITATION/ANXIETY/INSOMNIA Ibuprofen (Motrin Tab*) 400 mg PO Q6H PRN PRN Reason: PAIN Last Admin: 03/06/17 20:16 Dose: 400 mg Venlafaxine HCl (Effexor Xr Cap*) 150 mg PO DAILY [facility] Last Admin: 03/09/17 09:09 Dose: 150 mg - Discharge Plan Discharge Plan: Outpatient Follow Up Outpatient Program: [facility]
[2017-03-09] MEDS: clonazePAM TAB(*) 0.5 MG PO SCH (21:11)
[2017-03-10 08:09] VITALS: BP 110/75
[2017-03-10] MEDS: Venlafaxine EXT RELEASE CAP* 75 MG PO SCH (08:52)
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
== END 2017-03-10 12:30 | disposition home or self-care (01) | DRG 751 ==
LOC: BSU 13:44
PROVIDERS: ADMIT Psychiatry & Neurology Psychiatry; ATTEND Psychiatry & Neurology Psychiatry
DX: F32.2 Major depressive disorder, single episode, severe without psychotic features (principal); Z91.5 Personal history of self-harm
CPT/HCPCS: 90847; 90853; 99222; 99231; 99238; A9270-GY

== ENCOUNTER 2017-08-09 01:13 | Emergency (ER) | payer OTHER ==
[2017-08-09] MEDS ORDERED: NS 0.9% 1000 ML* 2,000 ML IV ONE (02:18)
[2017-08-09] MEDS ORDERED: Metoclopramide IV* 5 MG/ML 2 ML VIAL IV SLOW PU ONE (02:19)
[2017-08-09 02:40] LABS: ABS Basophils 0.1 10^3/ul (0-0.2); ABS Eosinophils 0.1 10^3/ul (0-0.6); ABS Lymphocytes 1.7 10^3/ul (1.0-4.8); ABS Monocytes 0.4 10^3/ul (0-0.8); ABS Neutrophils 3.8 10^3/ul (1.5-7.7); ABS Nucleated RBC 0 10^3/ul; Hematocrit 40 % (35-47); Lymphocyte % 28.8 % (25-47); Mean Corpuscular HGB Conc 33 g/dl (31-36); Mean Corpuscular Hemoglobin 29 pg (27-31); Mean Corpuscular Volume 88 fL (80-97); Mean Platelet Volume 7 um3 (7.4-10.4); Nucleated Red Blood Cells % 0; Platelet Count 262 10^3/ul (150-450); Red Blood Count 4.53 10^6/ul (4.0-5.4); Red Cell Distribution Width 14 % (10.5-15)
[2017-08-09 02:58] LABS: EGFR Non-African American 99.1 (>60)
--- NOTE | 2017-08-09 06:43 | ED ---
Santhosh Nicholson Tecjoon, scribed for Messi Toth MD on 08/09/17 at 0144 . Substance Abuse/Use - HPI Summary HPI Summary: This patient is a 22 year old female BIBA to [facility] for severe intoxication. At time of exam, patient is unresponsive and unable to speak or respond. Patient is clearly intoxicated. Patient is actively vomiting. HPI Limited by lvl 5 caveat: altered mental status. - History Of Current Complaint Stated Complaint: ETOH Time Seen by Provider: 08/09/17 01:16 Hx Obtained From: Patient Hx From Patient Unobtainable Due To: Altered Mental Status Onset/Duration of Drug/ETOH Abuse: Minutes Ingestion History: Type/Name Of Drug - EtOH Overdose Characteristics: Oral Severity Currently: Severe Character: Stuporous Aggravating Factor(s): Nothing Alleviating Factor(s): Nothing Associated Signs And Symptoms: Vomiting - Allergies/Home Medications Allergies/Adverse Reactions: Allergies Allergy/AdvReac Type Severity Reaction Status Date / Time MS No Known Drug Allergy Allergy Unknown Verified 03/01/17 13:25 [No Known Drug Allergy] Reaction Details PMH/Surg Hx/FS Hx/Imm Hx Previously Healthy: Yes Endocrine/Hematology History: Denies: Hx Diabetes Cardiovascular History: Denies: Hx Coronary Artery Disease, Hx Hypertension Sensory History: Denies: Hx Contacts or Glasses - none presesnt, Hx Hearing Aid Opthamlomology History: Denies: Hx Contacts or Glasses - none presesnt Psychiatric History: Reports: Other Psychiatric Issues/Disorders - Patient admits to cutting in the past Denies: Hx Eating Disorder, Hx of Violent Episodes Against Others - Family History Known Family History: Negative: Cardiac Disease, Hypertension, Diabetes - Social History Alcohol Use: unknown Hx Substance Use: No Substance Use Type: Reports: None Hx Tobacco Use: No Smoking Status (MU): Unknown if Ever Smoked Review of Systems Negative: Fever Positive: Other - altered mental status All Other Systems Reviewed And Are Negative: No - Comments Additional Review of Systems Comments: ROS Limited by lvl 5 caveat: AMS. Physical Exam - Summary Physical Exam Summary: GENERAL: Patient is responsive to deep pain. Patient is actively vomiting in ED. CHEST: Symmetric, no tenderness at palpation LUNGS: Clear to auscultation bilaterally. No wheezing or crackles. CVS: Regular rate and rhythm, S1 and S2 present, no murmurs or gallops appreciated. ABDOMEN: Soft, non-tender. No signs of distention. No rebound no guarding, and no masses palpated. Bowel sounds are normal. Triage Information Reviewed: No Vital Signs On Initial Exam: NECK: Supple, trachea is midline, no adenopathy, no JVD, no carotid bruit, no c- spine tenderness, neck with full ROM. LUNGS: Clear to auscultation bilaterally. No wheezing or crackles. CVS: Regular rate and rhythm, S1 and S2 present, no murmurs or gallops appreciated. ABDOMEN: Soft, non-tender. No signs of distention. No rebound no guarding, and no masses palpated. Bowel sounds are normal. Responsive to deep pain Actively vomiting. NEURO: Alert and oriented x 3. No acute neurological deficits. Speech is normal and follows commands. SKIN: Dry and warm Vital Signs Reviewed: No Completion Of Physical Exam Limited Due To: Altered Mental Status, Level 5 Diagnostics - Vital Signs Vital Signs Temp Pulse Resp BP Pulse Ox 08/09/17 05:30 92 18 90/50 96 08/09/17 05:00 94 18 91/50 96 08/09/17 04:30 91 17 86/42 96 08/09/17 04:03 89 30 101/59 99 08/09/17 04:00 91 20 98 08/09/17 03:30 99 18 109/78 99 08/09/17 03:00 95 18 99/55 97 08/09/17 02:30 92 16 101/63 97 08/09/17 02:00 100 17 103/63 98 08/09/17 01:25 36.1 C 98 16 123/96 98 - Laboratory Lab Results: Lab Results 08/09/17 08/09/17 Range/Units 02:30 02:30 WBC 6.0 (3.5-10.8) 10^3/ul RBC 4.53 (4.0-5.4) 10^6/ul Hgb 13.0 (12.0-16.0) g/dl Hct 40 (35-47) % MCV 88 (80-97) fL MCH 29 (27-31) pg MCHC 33 (31-36) g/dl RDW 14 (10.5-15) % Plt Count 262 (150-450) 10^3/ul MPV 7 L (7.4-10.4) um3 Neut % (Auto) 62.7 (38-83) % Lymph % (Auto) 28.8 (25-47) % [place] % (Auto) 6.5 (1-9) % Eos % (Auto) 1.0 (0-6) % Baso % (Auto) 1.0 (0-2) % Absolute Neuts (auto) 3.8 (1.5-7.7) 10^3/ul Absolute Lymphs (auto) 1.7 (1.0-4.8) 10^3/ul Absolute Monos (auto) 0.4 (0-0.8) 10^3/ul Absolute Eos (auto) 0.1 (0-0.6) 10^3/ul Absolute Basos (auto) 0.1 (0-0.2) 10^3/ul Absolute Nucleated RBC 0 10^3/ul Nucleated RBC % 0 Sodium 137 (133-145) mmol/L Potassium 4.2 (3.5-5.0) mmol/L Chloride 106 (101-111) mmol/L Carbon Dioxide 24 (22-32) mmol/L Anion Gap 7 (2-11) mmol/L BUN 12 (6-24) mg/dL Creatinine 0.74 (0.51-0.95) mg/dL Est GFR ( Amer) 127.4 (>60) Est GFR (Non-Af Amer) 99.1 (>60) BUN/Creatinine Ratio 16.2 (8-20) Glucose 115 H (70-100) mg/dL Calcium 8.7 (8.6-10.3) mg/dL Total Bilirubin 0.20 (0.2-1.0) mg/dL AST 22 (13-39) U/L ALT 12 (7-52) U/L Alkaline Phosphatase 49 (34-104) U/L Total Protein 7.2 (6.4-8.9) g/dL Albumin 4.2 (3.2-5.2) g/dL Globulin 3.0 (2-4) g/dL Albumin/Globulin Ratio 1.4 (1-3) Beta HCG, Quant < 0.60 mIU/mL Serum Alcohol 253 H (<10) mg/dL Result Diagrams: 08/09/17 02:30 08/09/17 02:30 Lab Statement: Any lab studies that have been ordered have been reviewed, and results considered in the medical decision making process. Course/Dx - Course Course Of Treatment: This patient is a 22 year old female BIBA to [facility] for severe intoxication. At time of exam, patient is unresponsive and unable to speak or respond. Bloodwork Obtained. Urinalysis Obtained. In the ED course the patient was given Reglan. Patient will be diagnosed with alcohol intoxication and discharged. Patient is advised to follow up with PCP in 3 days. The patient is agreeable with this plan. - Diagnoses Provider Diagnoses: Alcohol intoxication Discharge - Discharge Plan Condition: Stable Disposition: ADMITTED TO [facility] Patient Education Materials: Alcohol Intoxication (ED) Referrals: [facility] [Primary Care Provider] - 3 Days Additional Instructions: Patient will be diagnosed with alcohol intoxication and discharged. Patient is advised to follow up with PCP in 3 days. The patient is agreeable with this plan. Return to the ED for new or persisting symptoms. The documentation as recorded by the Santhosh elliott Tecjoon accurately reflects the service I personally performed and the decisions made by , Messi Toth MD.
[2017-08-09 10:15] VITALS: BP 103/58
== END 2017-08-09 10:15 | disposition short-term general hospital (02) ==
LOC: ED 01:13
DX: F10.129 Alcohol abuse with intoxication, unspecified (principal); R11.10 Vomiting, unspecified; R41.82 Altered mental status, unspecified; Y90.8 Blood alcohol level of 240 mg/100 ml or more
CPT/HCPCS: 36415; 80053; 80320; 84702; 85025; 96374; 96375; 99283; G0480; J2765